=== PATIENT | female | born 1960 | race Caucasian/White ===

== ENCOUNTER 2021-02-17 22:37 | Emergency (ER) | payer OTHER ==
[2021-02-17] MEDS ORDERED: Lidocaine 1% with EPINEPHrine 1:100,000 20 ML MDV INFILT ONE (22:38)
[2021-02-17] MEDS ORDERED: Lidocaine/EPINEPHrine/Tetracaine Soln 5 ML Each TOP ONE ×2 (22:56)
--- NOTE | 2021-02-18 00:04 | EDM.PDOC ---
ED HPI GENERAL MEDICAL PROBLEM - General Chief Complaint: Laceration Stated Complaint: CUT FINGER Time Seen by Provider: 02/17/21 22:45 Source of Information: Reports: Patient History Limitations: Reports: No Limitations - History of Present Illness INITIAL COMMENTS - FREE TEXT/NARRATIVE: Patient pressented to the ED because of an incised wound on the right thumb. She was washing dishes and a knife was with some of the dishes cut her right thum. She sustained a 2 cm laceration. - Related Data Allergies Allergy/AdvReac Type Severity Reaction Status Date / Time No Known Allergies Allergy Verified 02/17/21 23:58 Home Meds: Home Meds Escitalopram [Lexapro] 20 mg PO DAILY 02/17/21 [History] Past Medical History Psychiatric History: Reports: Anxiety Social & Family History - Tobacco Use Tobacco Use Status *Q: Never Tobacco User - Caffeine Use Caffeine Use: Reports: Coffee - Alcohol Use Days Per Week of Alcohol Use: 3 Number of Drinks Per Day: 3 Total Drinks Per Week: 9 - Recreational Drug Use Recreational Drug Use: No ED ROS GENERAL - Review of Systems Review Of Systems: See Below Constitutional: Reports: No Symptoms HEENT: Reports: No Symptoms Respiratory: Reports: No Symptoms Cardiovascular: Reports: No Symptoms Endocrine: Reports: No Symptoms : Reports: No Symptoms Musculoskeletal: Reports: No Symptoms Skin: Reports: Wound ED EXAM, SKIN/RASH Exam: See Below Exam Limited By: No Limitations General Appearance: Alert, No Apparent Distress Ears: Normal External Exam, Normal Canal Nose: Normal Inspection, Normal Mucosa, No Blood Throat/Mouth: Normal Inspection, Normal Lips, Normal Teeth Head: Atraumatic, Normocephalic Neck: Normal Inspection, Supple, Non-Tender, Full Range of Motion Respiratory/Chest: No Respiratory Distress, Lungs Clear, Normal Breath Sounds, No Accessory Muscle Use, Chest Non-Tender Cardiovascular: Normal Peripheral Pulses, Regular Rate, Rhythm, No Edema, No Gallop, No JVD, No Murmur, No Rub GI/Abdominal: Normal Bowel Sounds, Soft, Non-Tender, No Organomegaly, No Distention, No Abnormal Bruit, No Mass Back Exam: Normal Inspection, Full Range of Motion Extremities: Normal Inspection, Normal Range of Motion Neurological: Alert, Oriented, CN II-XII Intact ED SKIN PROCEDURES - Laceration/Wound Repair Right Digit - 1st (Thumb) Appearance: Subcutaneous Distal NVT: Neuro & Vascular Intact Anesthetic Type: Local Local Anesthesia - Lidocaine (Xylocaine): 1% with EPI Local Anesthetic Volume: 2cc Skin Prep: Chlorhexidine (Hibiciens), Saline Closed with: Sutures Lac/Wound length In cm: 2 Suture Size: 3-0 # of Sutures: 4 Suture Type: Other (polyglactin) Course - Vital Signs Text/Narrative:: UTD with immunization Last Recorded V/S: Last Vital Signs Temp 36.1 C 02/18/21 00:00 Pulse 74 02/18/21 00:00 Resp 16 02/18/21 00:00 BP 109/71 02/18/21 00:00 Pulse Ox 100 02/18/21 00:00 - Orders/Labs/Meds Meds: Medications Discontinued Medications Generic Name Dose Route Start Last Admin Trade Name Sharon PRN Reason Stop Dose Admin Lidocaine/Tetracaine 5 ml 02/17/21 22:56 02/17/21 23:04 Lidocaine/Epinephrine/Tetracaine Soln 5 Ml Each TOP 02/17/21 22:57 5 ml ONETIME ONE Administration Lidocaine/Tetracaine Confirm 02/17/21 22:56 02/17/21 23:00 Lidocaine/Epinephrine/Tetracaine Soln 5 Ml Each Administered 02/17/21 22:57 Not Given Dose 5 ml TOP .STK-MED ONE Departure - Departure Time of Disposition: 00:00 Disposition: Home, Self-Care 01 Condition: Good Clinical Impression: Laceration - Discharge Information Instructions: Laceration Care, Adult, Sutures, Dianelys, or Adhesive Wound Closure, [id number] Referrals: Geovanny Harris MD [Primary Care Provider] - Forms: ED Department Discharge Additional Instructions: Please read discharge instructions on laceration No need to apply an antibiotic ointment The suture is ABSORBABLE-It will eventually fall off Follow up as needed Sepsis Event Note (ED) - Evaluation Sepsis Screening Result: No Definite Risk - Focused Exam Vital Signs: Vital Signs Temp Pulse Resp BP Pulse Ox 02/18/21 00:00 36.1 C 74 16 109/71 100 02/17/21 22:37 35.8 C L 72 16 124/84 98
== END 2021-02-18 00:10 | disposition home or self-care (01) ==
LOC: FB.ED 22:37
DX: S61.011A Laceration without foreign body of right thumb without damage to nail, initial encounter (principal); Z79.899 Other long term (current) drug therapy; W26.0XXA Contact with knife, initial encounter
CPT/HCPCS: 12001; 99282; A9270